=== PATIENT | female | born 1960 | race American Indian/Alaskan Native ===

== ENCOUNTER 2018-10-06 22:09 | Emergency (ER) | payer SELFPAY ==
[2018-10-07] MEDS ORDERED: TORADOL IM ONE (02:29)
--- NOTE | 2018-10-07 02:36 | Emergency Department Report ---
ED General Adult HPI - General Chief complaint: Extremity Problem,Nontraumatic Stated complaint: MED REFILL Time Seen by Provider: 10/07/18 02:27 Source: patient Mode of arrival: Wheelchair Limitations: No Limitations - History of Present Illness Initial comments: pt presents for medication refill is states she is s/p left great toe amputation at [place] 1 week ago, pt states shes has abx, follow up in wound clinic but ran out of pain medication yesterday was on tramadol po q6h prn pain. pt received 30 tramadol at [facility] on 09/11/2018 per [employer] verification will give im dose in ed tonight rx 8 tabs for next two days pt will report to [place] [facility] clinic in 2 days as scheduled for medication refill and tx for surgical wound there are no other symptoms at this time. Severity scale (0 -10): 6 - Related Data Previous Rx's Medication Instructions Recorded Last Taken Type Tramadol HCl [Ultram] 50 mg PO Q6H PRN 2 Days #8 tablet 10/07/18 Unknown Rx ED Review of Systems ROS: Stated complaint: MED REFILL Other details as noted in HPI Constitutional: denies: chills, fever Eyes: denies: eye pain, eye discharge, vision change ENT: denies: ear pain, throat pain Respiratory: denies: cough, shortness of breath, wheezing Cardiovascular: denies: chest pain, palpitations Endocrine: no symptoms reported Gastrointestinal: denies: abdominal pain, nausea, diarrhea Genitourinary: denies: urgency, dysuria, discharge Musculoskeletal: denies: back pain, joint swelling, arthralgia Skin: other (left foot dressing intact no drainage no bleeding clean and dry ). denies: rash, lesions Neurological: denies: headache, weakness, paresthesias Psychiatric: denies: anxiety, depression Hematological/Lymphatic: denies: easy bleeding, easy bruising ED Past Medical Hx - Past Medical History Previous Medical History?: Yes Hx Hypertension: Yes Hx HIV: Yes Additional medical history: anemic - Surgical History Past Surgical History?: Yes - Social History Smoking Status: Never Smoker Substance Use Type: None - Medications Home Medications: Home Medications Medication Instructions Recorded Confirmed Last Taken Type Tramadol HCl [Ultram] 50 mg PO Q6H PRN 2 Days #8 tablet 10/07/18 Unknown Rx ED Physical Exam - General Limitations: No Limitations General appearance: alert, in no apparent distress - Head Head exam: Present: atraumatic, normocephalic - Eye Eye exam: Present: normal appearance - ENT ENT exam: Present: mucous membranes moist - Neck Neck exam: Present: normal inspection - Respiratory Respiratory exam: Present: normal lung sounds bilaterally. Absent: respiratory distress - Cardiovascular Cardiovascular Exam: Present: regular rate, normal rhythm. Absent: systolic murmur, diastolic murmur, rubs, gallop - GI/Abdominal GI/Abdominal exam: Present: soft, normal bowel sounds - Extremities Exam Extremities exam: Present: normal inspection - Back Exam Back exam: Present: normal inspection, full ROM - Neurological Exam Neurological exam: Present: alert, oriented X3, CN II-XII intact, reflexes normal, other (pt is BKA right has wheel chair ) - Psychiatric Psychiatric exam: Present: normal affect, normal mood - Skin Skin exam: Present: warm, dry, intact, normal color. Absent: rash ED Course Vital Signs 10/06/18 22:17 Temperature 97.9 F Pulse Rate 75 Respiratory 16 Rate Blood Pressure 109/70 O2 Sat by Pulse 100 Oximetry ED Medical Decision Making - Medical Decision Making this is medication refill only no surgical wound complaint vital signs normal pt appears well nontoxic will refill 2 days of medication, pt will report to [place] [facility] on monday 2 days as scheduled, pt verbalized agreement and understanding of same. Critical care attestation.: If time is entered above; I have spent that time in minutes in the direct care of this critically ill patient, excluding procedure time. ED Disposition Clinical Impression: Medication refill Disposition: - TO HOME OR SELFCARE Is pt being admited?: No Does the pt Need Aspirin: No Condition: Stable Instructions: Wound Healing and Your Diet (ED) Prescriptions: Tramadol HCl [Ultram] 50 mg PO Q6H PRN 2 Days #8 tablet PRN Reason: pain Referrals: PRIMARY CARE,MD [Primary Care Provider] - 3-5 Days Forms: Work/School Release Form(ED) Time of Disposition: 02:43
[2018-10-07 03:02] VITALS: BP 128/93
== END 2018-10-07 03:02 | disposition home or self-care (01) ==
LOC: ED 22:09
DX: I10 Essential (primary) hypertension (principal); Z76.0 Encounter for issue of repeat prescription; Z89.412 Acquired absence of left great toe; Z91.040 Latex allergy status; Z88.5 Allergy status to narcotic agent; Z21 Asymptomatic human immunodeficiency virus [HIV] infection status; Z86.2 Personal history of diseases of the blood and blood-forming organs and certain disorders involving the immune mechanism
CPT/HCPCS: 96372; 99283; J1885